=== PATIENT | female | born 1985 | race Caucasian/White ===

== ENCOUNTER 2017-08-28 20:44 | Emergency (ER) | payer MEDICARE, MEDICAID ==
[~2017-08-28] VITALS: Ht 177.8 cm; Wt 52.2 kg
[2017-08-28 21:21] VITALS: BP 123/67
--- NOTE | 2017-08-28 21:44 | Emergency Room Report ---
History of Present Illness General Chief Complaint: Overdose Source: Patient, EMS Present Illness HPI Is a 31-year-old female with history of anxiety. She presents with chief complaint of overdose. She was being booked for shoplifting at a nearby apartment store. On the way to the police station she said that she took 10-11 tablets of Klonopin. This occurred around 6 PM. Because of that please call fire department and amnestic her here. Patient said she has a history anxiety and was more anxious today so she took those medicine. She get monthly prescription of clonazepam 2 mg a month. Patient denies suicidal thought homicidal thought. Allergies: Coded Allergies: No Known Allergies (Unverified , 08/28/17) Patient History Past Medical History: see triage record, old chart reviewed, psych hx Past Surgical History: other Pertinent Family History: none Social History: Denies: smoking Last Menstrual Period: 08/26/17 Now: No : 0 Para: 0 Immunizations: other Reviewed Nursing Documentation: PMH: Agreed, PSxH: Agreed Nursing Documentation-PMH History Of Psychiatric Problem: Yes - PTSD Review of Systems Eye: Denies: eye pain, blurred vision ENT: Denies: ear pain, nose congestion, throat swelling Respiratory: Denies: cough, shortness of breath Cardiovascular: Denies: chest pain, palpitations Gastrointestinal: Denies: abdominal pain, diarrhea, nausea, vomiting Musculoskeletal: Denies: back pain, joint pain Skin: Denies: rash Neurological: Denies: headache, numbness Endocrine: Denies: increased thirst, increased urine Hematologic/Lymphatic: Denies: easy bruising All Other Systems: negative except mentioned in HPI Physical Exam Vital Signs Date Time Temp Pulse Resp B/P (MAP) Pulse Ox O2 Delivery O2 Flow Rate FiO2 08/28/17 20:42 98.4 80 20 124/84 99 Room Air vitals normal Sp02 EP Interpretation: reviewed, normal General Appearance: well appearing, no apparent distress, alert Head: normocephalic, atraumatic Eyes: bilateral eye PERRL, bilateral eye EOMI ENT: hearing grossly normal, normal pharynx Neck: full range of motion, supple, no meningismus Respiratory: chest non-tender, lungs clear, normal breath sounds Cardiovascular #1: regular rate, rhythm, no murmur Gastrointestinal: normal bowel sounds, non tender, no mass, no organomegaly, no bruit, non-distended Musculoskeletal: back normal, gait/station normal, normal range of motion Psychiatric: mood/affect normal Skin: warm/dry Medical Decision Making Diagnostic Impression: Primary Impression: Drug overdose Qualified Codes: T50.901A - Poisoning by unspecified drugs, medicaments and biological substances, accidental (unintentional), initial encounter ER Course Patient presents with possible drug overdose. She is awake, walking without difficulty. Talking without any slurred speech. I doubt that she took that much. Again she get monthly prescription of clonazepam 2 mg #30. She the prescription on 08/05/2017. Based on this date, she should have about 7 tablets left most. She showed no evidence of benzodiazepine overdose. Her mental status is clear. She also felt to mention that she gets Suboxone prescription #45 monthly also. Last Vital Signs Date Time Temp Pulse Resp B/P (MAP) Pulse Ox O2 Delivery O2 Flow Rate FiO2 08/28/17 20:42 98.4 80 20 124/84 99 Room Air Status: improved Disposition: HOME, SELF-CARE Condition: Stable Patient Instructions: OVERDOSE, Accidental (Adult) Additional Instructions: Taking your medication as prescribed. Followup your Dr. in 7 days. Return if worse. MARY PAVON M.D. Aug 28, 2017 21:44
[2017-08-28 22:00] VITALS: BP 123/67
== END 2017-08-28 21:50 | disposition home or self-care (01) ==
LOC: EDBD 20:44 → EMR 21:10
DX: T42.4X1A Poisoning by benzodiazepines, accidental (unintentional), initial encounter (principal); F43.10 Post-traumatic stress disorder, unspecified
CPT/HCPCS: 99283